=== PATIENT | male | born 1980 | race Caucasian/White ===

== ENCOUNTER 2017-06-21 18:31 | Emergency (ER) | payer OTHER ==
[2017-06-21] MEDS: ONDANSETRON (ODT) 4 MG TAB ODT (22:42)
== END 2017-06-21 23:45 | disposition home or self-care (01) ==
LOC: FTE 18:31
DX: S16.1XXA Strain of muscle, fascia and tendon at neck level, initial encounter (principal); S06.0X0A Concussion without loss of consciousness, initial encounter; F17.210 Nicotine dependence, cigarettes, uncomplicated; M54.5 Low back pain; R11.10 Vomiting, unspecified; V43.62XA Car passenger injured in collision with other type car in traffic accident, initial encounter
CPT/HCPCS: 70450; 99284-25